=== PATIENT | male | born 1940 | race Caucasian/White ===

== ENCOUNTER 2017-05-14 08:12 | Outpatient (CLI) | payer MEDICARE ==
[2017-05-14 09:46] LABS: Anion Gap 13 mmol/L (10-20); BUN (Urea Nitrogen) 29 mg/dL (8.4-25.7); Calc. Creatinine Clearance 0 mL/min (70-130); Calcium 9.4 mg/dL (7.8-10.44); Carbon Dioxide 23 mmol/L (23-31); Chloride 106 mmol/L (98-107); Estimated GFR-MDRD 43; Glucose 74 mg/dL (83-110); Potassium 4.3 mmol/L (3.5-5.1); Sodium 138 mmol/L (136-145)
== END 2017-05-14 08:13 | disposition home or self-care (01) ==
LOC: MADLAB 08:12
PROVIDERS: ATTEND Internal Medicine Nephrology
DX: E11.22 Type 2 diabetes mellitus with diabetic chronic kidney disease (principal); I12.9 Hypertensive chronic kidney disease with stage 1 through stage 4 chronic kidney disease, or unspecified chronic kidney disease; N18.3 Chronic kidney disease, stage 3 (moderate); R80.9 Proteinuria, unspecified
CPT/HCPCS: 36415; 80048

== ENCOUNTER 2017-06-14 08:07 | Outpatient (CLI) | payer MEDICARE ==
[2017-06-14 09:36] LABS: Albumin 3.8 g/dL (3.4-4.8); Anion Gap 11 mmol/L (10-20); BUN (Urea Nitrogen) 32 mg/dL (8.4-25.7); Calc. Creatinine Clearance 0 mL/min (70-130); Calcium 9.4 mg/dL (7.8-10.44); Carbon Dioxide 27 mmol/L (23-31); Chloride 104 mmol/L (98-107); Estimated GFR-MDRD 40; Glucose 88 mg/dL (83-110); Potassium 4.4 mmol/L (3.5-5.1); Sodium 138 mmol/L (136-145)
[2017-06-14 17:43] LABS: Creatinine, Urine 78.65 mg/dL (63-166); Protein, Urine Random Quant Less than 10 mg/dL
== END 2017-06-14 08:08 | disposition home or self-care (01) ==
LOC: MADLAB 08:07
PROVIDERS: ATTEND Internal Medicine Nephrology
DX: I13.0 Hypertensive heart and chronic kidney disease with heart failure and stage 1 through stage 4 chronic kidney disease, or unspecified chronic kidney disease (principal); N18.3 Chronic kidney disease, stage 3 (moderate)
CPT/HCPCS: 36415; 80048; 82040; 82570; 84156

== ENCOUNTER 2018-01-13 07:27 | Outpatient (CLI) | payer MEDICARE ==
[2018-01-13 08:34] LABS: Anion Gap 14 mmol/L (10-20); BUN (Urea Nitrogen) 30 mg/dL (8.4-25.7); Calc. Creatinine Clearance 0 mL/min (70-130); Calcium 9.1 mg/dL (7.8-10.44); Carbon Dioxide 23 mmol/L (23-31); Chloride 108 mmol/L (98-107); Estimated GFR-MDRD 40; Glucose 124 mg/dL (83-110); Potassium 4.5 mmol/L (3.5-5.1); Sodium 140 mmol/L (136-145)
== END 2018-01-13 07:28 | disposition home or self-care (01) ==
LOC: MADLAB 07:27
PROVIDERS: ATTEND Internal Medicine Nephrology
DX: I12.9 Hypertensive chronic kidney disease with stage 1 through stage 4 chronic kidney disease, or unspecified chronic kidney disease (principal); N18.3 Chronic kidney disease, stage 3 (moderate); I20.9 Angina pectoris, unspecified
CPT/HCPCS: 36415; 80048

== ENCOUNTER 2018-06-16 11:52 | Emergency (ER) | payer MEDICARE ==
[~2018-06-16 11:52] MED LIST: Iopamidol 370 76% 100 ML VIAL ONE; Sodium Chloride 0.9% 500 ML BAG ONE
[2018-06-16 14:01] LABS: #Basophils 0.1 thou/uL (0.0-0.2); #Eosinphils 0.2 thou/uL (0.0-0.7); #Lymphocytes 1.9 thou/uL (1.20-3.40); #Monocytes 0.9 thou/uL (0.11-0.59); #Neutrophils 7.9 thou/uL (1.40-6.50); %Eosinophils 1.8 % (0.0-10.0); %Monocytes 7.9 % (0.0-10.0); %Neutrophils 72.3 % (42.0-75.0); Hemoglobin 12.3 g/dL (14.0-18.0); Mean Corpuscular HGB CONC 32.7 g/dL (32.0-36.0); Mean Corpuscular Volume 82.4 fL (78.0-98.0); Platelet Count 213 thou/uL (130-400); RBC Distribution Width 12.6 % (11.5-14.5); Red Blood Cell (RBC) Count 4.56 mill/uL (4.70-6.10); White Blood Cell (WBC) Count 10.9 thou/uL (4.8-10.8)
[2018-06-16 14:19] LABS: ALT (SGPT) 14 U/L (8-55); AST (SGOT) 16 U/L (5-34); Albumin 3.8 g/dL (3.4-4.8); Alkaline Phosphatase 65 U/L (40-150); Anion Gap 13 mmol/L (10-20); BUN (Urea Nitrogen) 30 mg/dL (8.4-25.7); Bilirubin, Total 0.4 mg/dL (0.2-1.2); Calc. Creatinine Clearance 0 mL/min (70-130); Calcium 8.9 mg/dL (7.8-10.44); Carbon Dioxide 25 mmol/L (23-31); Chloride 102 mmol/L (98-107); Estimated GFR-MDRD 37; Globulin 2.9 g/dL (2.4-3.5); Glucose 257 mg/dL (83-110); Potassium 4.7 mmol/L (3.5-5.1); Protein, Total 6.7 g/dL (5.8-8.1); Sodium 135 mmol/L (136-145)
[2018-06-16 14:24] LABS: Bilirubin Negative (Negative); Blood, Urine Negative (Negative); Clarity Clear (Clear); Glucose, Urine (Dipstick) 250 mg/dL (Negative); Leukocyte Negative (Negative); Nitrite Negative (Negative); Protein, Urine (Dipstick) Negative (Neg-Trace); Urobilinogen 0.2 mg/dL (0.2-1.0); pH, Urine 5.5 (5.0-9.0)
--- NOTE | 2018-06-16 14:31 | RAD ---
RADIOGRAPH ABDOMEN 2 VIEWS: Date: 06/25/18 Time: 1225 hours HISTORY: 77-year-old male with abdominal pain and distention. Rule out obstruction. FINDINGS: No evidence of pneumoperitoneum. Gas and air fluid levels throughout nondilated transverse colon, hep atic flexure, and splenic flexure. Almost complete lack of gas within the small intestine. IMPRESSION: Lack of gas in the small bowel makes it very difficult to examine the small intestine. Therefore, CT of the abdomen and pelvis should be considered. POS: RUBY
[2018-06-16] MEDS ORDERED: Amoxicillin/Potassium Clav 875 MG TAB ONE (15:55)
--- NOTE | 2018-06-16 16:41 | CT ---
CT ABDOMEN AND PELVIS WITH IV CONTRAST: HISTORY: Constipation. Abdominal pain. FINDINGS: The lung bases are clear. No free air or lymphadenopathy is seen in the abdomen or pelvis. The live r, pancreas, adrenal glands, and left kidney are normal. There is a cortical cyst arising from the r ight kidney, measuring 1.7 cm. There are calcified granulomas in the spleen. There are vascular caryn cifications without evidence of aneurysmal dilatation of the abdominal aorta. Degenerative changes a re present in the spine. The small bowel loops are not abnormally dilated. There is colonic diverticulosis. There are pericolonic inflammatory changes in the descending colon. A small amount of free fluid is seen in the lower abdomen. The prostate is mildly enlarged. There are small bilateral fat-containing inguinal hernias. IMPRESSION: Colonic diverticulosis and diverticulitis in the left hemiabdomen and left lower quadrant. No eviden ce of bowel obstruction or abscess formation. POS: RUBY
== END 2018-06-16 16:05 | disposition home or self-care (01) ==
LOC: MADERS 11:52
DX: K57.92 Diverticulitis of intestine, part unspecified, without perforation or abscess without bleeding (principal); K59.00 Constipation, unspecified; G47.30 Sleep apnea, unspecified; I25.10 Atherosclerotic heart disease of native coronary artery without angina pectoris; E11.9 Type 2 diabetes mellitus without complications; I11.0 Hypertensive heart disease with heart failure; I50.9 Heart failure, unspecified
CPT/HCPCS: 74019; 74177; 80053; 81003; 85025; 96360; J7050

== ENCOUNTER 2019-06-29 10:00 | Emergency (ER) | payer MEDICARE ==
[2019-06-29] MEDS ORDERED: Aspirin Chewable 81 MG TAB ONE (10:10)
[2019-06-29] MEDS ORDERED: Nitroglycerin 2% Ointment 1 INCH/1 GM Packet ONE ×2 (10:11)
[2019-06-29 10:14] LABS: #Basophils 0.1 thou/uL (0.0-0.2); #Eosinphils 0.2 thou/uL (0.0-0.7); #Lymphocytes 1.4 thou/uL (1.20-3.40); #Monocytes 0.5 thou/uL (0.11-0.59); #Neutrophils 3.1 thou/uL (1.40-6.50); %Basophils 1.3 % (0.0-1.0); %Eosinophils 4.5 % (0.0-10.0); %Lymphocytes 27.2 % (21.0-51.0); %Monocytes 8.5 % (0.0-10.0); %Neutrophils 58.5 % (42.0-75.0); Hemoglobin 10.9 g/dL (14.0-18.0); Mean Corpuscular HGB CONC 32.2 g/dL (32.0-36.0); Mean Corpuscular Hemoglobin 25.5 pg (27.0-31.0); Mean Corpuscular Volume 79.4 fL (78.0-98.0); Mean Platelet Volume 8.2 fL (7.4-10.4); Platelet Count 194 thou/uL (130-400); RBC Distribution Width 13.4 % (11.5-14.5); Red Blood Cell (RBC) Count 4.28 mill/uL (4.70-6.10); White Blood Cell (WBC) Count 5.3 thou/uL (4.8-10.8)
--- NOTE | 2019-06-29 10:20 | RAD ---
Exam: Chest one view HISTORY:Chest pain Comparison: 03/16/2019, 04/06/2019 FINDINGS: Cardiac silhouette:Stable cardiomegaly. Stable sternotomy wires. Aorta: Atherosclerosis of the aortic knob Pulmonary vessels: Normal Costophrenic angles: Clear LUNGS: No masses or consolidation. Pneumothorax: None Osseous abnormalities: None IMPRESSION: 1. Cardiomegaly without evidence of congestive heart failure.
[2019-06-29 10:27] LABS: ALT (SGPT) 16 U/L (8-55); AST (SGOT) 13 U/L (5-34); Albumin 3.8 g/dL (3.4-4.8); Alkaline Phosphatase 59 U/L (40-110); Anion Gap 15 mmol/L (10-20); BUN (Urea Nitrogen) 40 mg/dL (8.4-25.7); Bilirubin, Total 0.2 mg/dL (0.2-1.2); CK (CPK) 61 U/L (30-200); Calc. Creatinine Clearance 0 mL/min (70-130); Calcium 8.6 mg/dL (7.8-10.44); Carbon Dioxide 22 mmol/L (23-31); Chloride 106 mmol/L (98-107); Estimated GFR-MDRD 28; Globulin 2.8 g/dL (2.4-3.5); Glucose 283 mg/dL (83-110); Magnesium 1.8 mg/dL (1.6-2.6); Potassium 4.4 mmol/L (3.5-5.1); Protein, Total 6.6 g/dL (5.8-8.1); Sodium 139 mmol/L (136-145)
== END 2019-06-29 12:10 | disposition short-term general hospital (02) ==
LOC: MADERS 10:00
DX: I24.9 Acute ischemic heart disease, unspecified (principal); I25.118 Atherosclerotic heart disease of native coronary artery with other forms of angina pectoris; I11.0 Hypertensive heart disease with heart failure; I50.9 Heart failure, unspecified; E11.9 Type 2 diabetes mellitus without complications; G47.30 Sleep apnea, unspecified; Z79.82 Long term (current) use of aspirin; Z95.5 Presence of coronary angioplasty implant and graft; Z79.899 Other long term (current) drug therapy
CPT/HCPCS: 36415; 71045; 80053; 82550; 83735; 83880; 84484; 85025; 93005; 94760

== ENCOUNTER 2019-08-14 08:32 | Outpatient (CLI) | payer MEDICARE ==
[2019-08-14 09:15] LABS: Anion Gap 13 mmol/L (10-20); BUN (Urea Nitrogen) 29 mg/dL (8.4-25.7); Calc. Creatinine Clearance 0 mL/min (70-130); Calcium 8.7 mg/dL (7.8-10.44); Carbon Dioxide 23 mmol/L (23-31); Chloride 105 mmol/L (98-107); Estimated GFR-MDRD 36; Glucose 218 mg/dL (83-110); Phosphorus 3.4 mg/dL (2.3-4.7); Potassium 4.2 mmol/L (3.5-5.1); Sodium 137 mmol/L (136-145)
== END 2019-08-14 08:33 | disposition home or self-care (01) ==
LOC: MADER/OP 08:32
PROVIDERS: ATTEND Internal Medicine Infectious Disease
DX: I12.9 Hypertensive chronic kidney disease with stage 1 through stage 4 chronic kidney disease, or unspecified chronic kidney disease (principal); N18.3 Chronic kidney disease, stage 3 (moderate); R80.9 Proteinuria, unspecified; R60.9 Edema, unspecified
CPT/HCPCS: 36415; 80048; 83970; 84100

== ENCOUNTER 2025-08-03 07:54 | Outpatient (CLI) | payer MEDICARE ==
[2025-08-03 08:31] LABS: Albumin 3.3 g/dL (3.1-4.5); Anion Gap 12 mmol/L (10-20); BUN (Urea Nitrogen) 20 mg/dL (8.4-25.7); Calc. Creatinine Clearance 0 mL/min (70-130); Calcium 8.7 mg/dL (7.8-10.44); Carbon Dioxide 24 mmol/L (23-31); Chloride 106 mmol/L (98-107); Glucose 127 mg/dL (83-110); Magnesium 1.6 mg/dL (1.6-2.6); Potassium 4.1 mmol/L (3.5-5.1); Sodium 138 mmol/L (136-145)
[2025-08-03 08:34] LABS: Glucose, Urine (Dipstick) 500 mg/dL (Negative); Leukocyte Negative (Negative); Protein, Urine (Dipstick) Trace mg/dL (Neg-Trace); Specific Gravity, Urine 1.020 (1.005-1.030)
[2025-08-03 13:12] LABS: #Basophils 0.1 thou/uL (0.0-0.2); #Eosinophils 0.2 thou/uL (0.0-0.7); #Lymphocytes 1.2 thou/uL (1.20-3.40); #Monocytes 0.5 thou/uL (0.11-0.59); #Neutrophils 2.9 thou/uL (1.40-6.50); %Basophils 1.8 % (0.0-1.0); %Eosinophils 3.9 % (0.0-10.0); %Lymphocytes 24.8 % (21.0-51.0); %Monocytes 10.3 % (0.0-10.0); %Neutrophils 59.3 % (42.0-75.0); Hematocrit 42.9 % (42.0-52.0); Hemoglobin 13.4 g/dL (14.0-18.0); Mean Corpuscular Hemoglobin 27.1 pg (27.0-31.0); Mean Corpuscular Volume 86.7 fl (78.0-98.0); Platelet Count 182 10x3/uL (130-400); Red Blood Cell (RBC) Count 4.95 mill/uL (4.70-6.10); White Blood Cell (WBC) Count 4.9 10x3/uL (4.8-10.8)
[2025-08-03 15:02] LABS: Protein, Urine Random Quant 15.0 mg/dL (1-14)
== END 2025-08-03 07:55 | disposition home or self-care (01) ==
LOC: MADLAB 07:54
PROVIDERS: ATTEND Internal Medicine Nephrology
DX: I12.9 Hypertensive chronic kidney disease with stage 1 through stage 4 chronic kidney disease, or unspecified chronic kidney disease (principal); E11.22 Type 2 diabetes mellitus with diabetic chronic kidney disease; N18.30 Chronic kidney disease, stage 3 unspecified; N25.81 Secondary hyperparathyroidism of renal origin; R60.9 Edema, unspecified
CPT/HCPCS: 36415; 80048; 81003; 82040; 82043; 83735; 83970; 84100; 84156; 85025